=== PATIENT | male | born 1940 | race Caucasian/White ===

== ENCOUNTER 2016-07-17 09:54 | Emergency (ER) | payer MEDICARE, OTHER ==
[~2016-07-17] VITALS: Ht 188 cm; Wt 88.6 kg
[~2016-07-17 09:54] MED LIST: ALBU0.63 IH; ASPI81TA3 PO; COMBIVENTA INH; FORM12CA IH; INSU100I13 SUBQ; LISI10TA2 PO; METF10002 PO; METO25TA6 PO; MORP-32 PO; OMEP-113 PO; PRAV80TA2 PO; SERT100T9 PO; TRAZ-118 PO; amoxicillin PO
[2016-07-17 09:59] VITALS: BP 162/88; PULSE 66; RESP 18; O2SAT 98
--- NOTE | 2016-07-17 10:08 | ED.REPORT ---
HPI-Neurologic Deficit Date of Service July 17, 2016 ED Provider: Amadou Russell MD The patient is a 75 year old male w/ a hx of DM on insulin, stroke, IL, and HTN who presents to the ED due increasing numbness and dysfunction in right leg increasing in severity over the past few months. The pt reports he's been tripping and has noticed that his right leg is "dragging" behind him. Associated symptoms include difficulty urinating, incontinence, and slurred speech. He denies numbness, fever, chills, hematochezia, hematuria, dysuria, LOC , dizziness, and confusion. Pt recently had a cold but feels better now. 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 The patient was sent here directly from the [facility]. Nursing Notes Stated Complaint: BACK/RIGHT LEG PAIN Chief Complaint: Back Pain or Injury Nursing Notes Reviewed: Yes Allergies: Coded Allergies: quinine (Verified Allergy, Severe, 11/11/13) Uncoded Allergies: SURG TAPE (Allergy, Mild, BLISTERS, 11/14/05) Scheduled ([amoxicillin]) 1 GM PO TID Albuterol/Ipratropium (Combivent Inhaler) 14.7 Gm Aero 14.7 GM INH QID Aspirin Chew (Aspirin Chew) 81 Mg Tab.chew 81 MG PO DAILY Formoterol Fumarate (Foradil) 12 Mcg Cap.w.dev 12 MCG IH BID Insulin Glargine (Lantus U100 Solostar Insulin Pen) 100 Unit/1 Ml Insuln.pen 10 UNIT SUBQ HS Lisinopril (Lisinopril) 10 Mg Tablet 10 MG PO DAILY Metformin (Metformin) 1,000 Mg Tablet 1,000 MG PO BIDWM Metoprolol Tartrate (Metoprolol Tartrate) 25 Mg Tablet 12.5 MG PO BID Morphine Sulfate ER (Morphine Sulfate ER) 15 Mg Tablet.er 15 MG PO BID Omeprazole Magnesium (Omeprazole) 20 Mg Capsule.dr 40 MG PO BID Pravastatin (Pravastatin) 80 Mg Tablet 80 MG PO HS Sertraline HCl (Sertraline) 100 Mg Tablet 200 MG PO DAILY Trazodone (Trazodone) 100 Mg Tablet 200 MG PO HS Scheduled PRN Albuterol Neb Soln (Albuterol Neb Soln) 0.63 Mg/3 Ml Vial.neb 90 MCG IH BID PRN PRN For Shortness of Breath General Time Seen by Provider: 10:12 Chief Complaint Other (numbness in right leg) Hx Obtained From: Patient Arrived By: Walk-in Sudden in Onset?: Yes Onset Occurred: More than a week ago... (3 months) Symptom Duration: Since onset Location: : Leg right Quality: Itching Severity: Current: Mild Recent Healthcare: Recent doctor visit Similar Sx Previous: Yes Risk Factors NIH Stroke Scale Level of Consciousness: Alert and responsive (0) Ask Month & Age: Both questions right (0) Open/Close Eyes/Hand Ruby Engineer: Performs both tasks (0) Horizontal EO Movements: None (0) Visual Elliott: No visual loss (0) Facial Palsy: Normal symmetry (0) Right Arm Motor Drift (10s): No drift 10 sec (0) Left Arm Motor Drift (10s): No drift 10 sec (0) Right Leg Motor Drift (5s): No drift 5 sec (0) Left Leg Motor Drift (5s): No drift 5 sec (0) Limb Ataxia FNF/Heel-Mosher: Ataxia in 2 limbs (2) Sensation (Arms/Legs/Face): Pinprick less sharp (1) (right upper extremity) Language Aphasia: No aphasia, normal (0) Dysarthria: No dysarthria, normal (0) Extinction/Inattention: No exctinct/inattent (0) NIHSS Score: 2 Time NIHSS Performed: 10:18 Date NIHSS Performed: July 17, 2016 Past Medical History Past Medical History DM on insulin HTN stroke IL Past Surgical History right partial lung resection Smoking History Unknown if Ever Smoker Social History Alcohol Use: Denies alcohol use Other Social History: Local resident Ambulatory Status Independent Review of Systems Respiratory: Denies: Shortness of breath GI: Denies: Diarrhea, Hematemesis, Hematochezia, Nausea, Vomiting Neurologic: Reports: Numbness (right leg, bilateral feet), Slurred speech, Weakness, Denies: Change LOC, Dizziness Complete sys rev & neg: except as marked. Male: Reports Incontinence, Reports Urination decreased, Denies Dysuria Physical Exam Initial Vital Signs Vital Signs (First) Date Time Temp Pulse Resp B/P Pulse Ox O2 Delivery O2 Flow Rate FiO2 07/17/16 09:59 36.4 66 18 162/88 98 Room Air Initial VS: Reviewed General/Constitutional: Awake, Alert, No acute distress, Cooperative Head / Eyes: Normocephalic Respiratory / Chest: No respiratory distress, No wheezing, No retractions Cardiovascular: Heart rate NL, Regular rhythm Speech: Positive: Slurred Neck: Atraumatic, Supple Back: Atraumatic, Inspection NL Upper Extremity / MS: Atraumatic, Inspection NL, Full range of motion Lower Extremity / Pelvis / MS: No deformity Right Leg / Calf: Positive: Neuro deficit present weak to dorsal flexion on the right leg Interpretation & Diagnostics Interpretation & Diagnostics: BRAIN MRI IMPRESSION: 1. No acute intracranial abnormality. 2. No recent infarct. 3. Volume loss and small vessel ischemic disease. Dictated by: Darren Coleman M.D. on 07/17/2016 at 11:31 Approved by: Darren Coleman M.D. on 07/17/2016 at 11:33 Lab Results Interpretation Result Diagram: 07/17/16 1050 07/17/16 1050 Test 07/17/16 10:50 White Blood Count 7.1th/mm3 (3.8-10.1) Red Blood Count 4.75mil/mm3 (4.40-5.80) Hemoglobin 13.0g/dL (13.8-17.2) Hematocrit 40.3% (41.0-50.0) Mean Corpuscular Volume 84.8fL (81-100) Mean Corpuscular Hemoglobin 27.4pg (27.0-35.0) Mean Corpuscular Hemoglobin Concent 32.3% (32.0-37.0) Red Cell Distribution Width 14.3% (12.3-15.4) Platelet Count 227bil/L (150-400) Neutrophils (%) (Auto) 63.2% (40-74) Lymphocytes (%) (Auto) 24.9% (14-46) Monocytes (%) (Auto) 9.1% (4-12) Eosinophils (%) (Auto) 2.1% (0-5) Basophils (%) (Auto) 0.6% (0-3) Sodium Level 139mEq/L (134-144) Potassium Level 4.4mEq/L (3.5-5.2) Chloride Level 100mEq/L (97-108) Carbon Dioxide Level 25mmol/L (18-29) Blood Urea Nitrogen 16mg/dL (8-27) Creatinine 1.15mg/dL (0.76-1.27) Estimat Glomerular Filtration Rate 66mL/min (>59) Glucose Level 151mg/dL (60-99) Calcium Level 9.5mg/dL (8.5-10.1) Total Bilirubin 0.4mg/dL (0.0-1.2) Aspartate Amino Transf (AST/SGOT) 57U/L (0-50) Alanine Aminotransferase (ALT/SGPT) 44U/L (0-44) Alkaline Phosphatase 60U/L (25-160) Total Protein 7.9g/dL (6.4-8.4) Albumin 4.2g/dL (3.4-5.0) ECG Interpretation ECG Interpretation: prolonged AR interval Time: 10:43 Interpreted by: ED physician Normal ECG Interpretation: Normal sinus rhythm (rate 66) Re-Eval/Medical Decision Med Decision/Clinical Course The serum and symptoms have been present for a couple of months. To me it seems most critical to exclude a central nervous system problem which I believe we have effectively excluded with MRI of the brain. He continues to suffer from dysfunction of his right lower extremity which I believe will likely require further investigation. I encouraged him to follow up at the [facility] in the coming days for more definitive investigation of this problem specifically. Re-Evaluation/Progress : Time of Eval: 12:04 Patient Status: Pain improved Re-Evaluation/Progress Note: Pt rechecked. Informed pt of negative MRI and plan for discharge. Pt understands and agrees with plan. F/U and RTER warnings given. All questions addressed. Counseled Regarding: Diagnosis, Lab results, Need for follow-up, When/why to return to ED Discharge & Departure Impression: Primary Impression: Weakness of right lower extremity Disposition: Home Discharge Condition All VS Reviewed: Yes Condition: Stable Patient Instructions: Lumbar Radiculopathy (ED) Additional Instructions: Thank you for entrusting us with your care today. Your MRI does not show any acute findings, you did not have a new or recent stroke. Speak to your doctors at the [place] regarding your leg for further evaluation. I believe this should be evaluated in the next one or 2 weeks. It is conceivable that there is some sort of a nerve impingement in the lower back region. Return to the Emergency Department for any new or worsening symptoms including dizziness, loss of consciousness, numbness, and weakness. I hope you feel better soon, enjoy the sunshine! Do not drive any sooner than 3 PM today because of the medications we have given. Referrals: OTHER,PHYSICIAN (PCP) Scribe Attestation Portion of this note were transcribed by Gi Ogden. I, Dr. Russell, personally performed the history, physical exam, and medical decision-making: I reviewed and confirmed the accuracy for the information in the transcribed note. Signed by: jose j Alfaro, 07/17/16 1200 copies to: [facility] Amadou Russell MD July 17, 2016 10:08 Gi Ogden July 17, 2016 10:15
[2016-07-17 11:01] LABS: BASOPHILS % (AUTO) 0.6 % (0-3); EOSINOPHILS % (AUTO) 2.1 % (0-5); MONOCYTES % (AUTO) 9.1 % (4-12); Mean Corpuscular Hemoglobin 27.4 pg (27.0-35.0); Mean Corpuscular Volume 84.8 fL (81-100); NEUTROPHILS % (AUTO) 63.2 % (40-74); Platelet Count 227 bil/L (150-400)
--- NOTE | 2016-07-17 11:34 | DRSVH ---
PROCEDURE: MRI BRAIN WITHOUT CONTRAST ([id number]) INDICATIONS: right side deficits, sub acute TECHNIQUE: Non-contrast axial T1 spin echo, axial T2 fast spin echo, sagittal and axial FLAIR, coronal T2 fast s pin echo, axial gradient echo, axial diffusion and ADC through the brain. COMPARISON: [facility], MR, STROKE PROTOCAL (PNL), 07/29/2007, 11:51. FINDINGS: Image quality: Partially degraded by motion artifact. CSF spaces: Ventricles appear symmetric in size and shape. Basal cisterns are patent. No extra-axi al fluid collections. Brain: No intracranial bleeds or mass effects. There is cerebral volume loss for age. There are pe riventricular and deep white matter chronic small vessel ischemic changes. Brainstem appears normal. Diffusion-weighted images show no acute ischemic insults. No chronic ischemic insults. Normal int ravascular flow voids are present. Skull and face: Calvarial bone marrow is normal in signal. Orbits are normal. Sinuses: Sinuses and mastoids are clear. IMPRESSION: 1. No acute intracranial abnormality. 2. No recent infarct. 3. Volume loss and small vessel ischemic disease. Dictated by: Darren Coleman M.D. on 07/17/2016 at 11:31 Approved by: Darren Coleman M.D. on 07/17/2016 at 11:33
[2016-07-17 11:59] VITALS: BP 130/74; PULSE 65; RESP 16; O2SAT 94
[2016-07-17 14:38] VITALS: BP 134/81; PULSE 76; RESP 18; O2SAT 96
== END 2016-07-17 14:39 | disposition home or self-care (01) ==
LOC: SED 09:54
DX: R53.1 Weakness (principal); E11.9 Type 2 diabetes mellitus without complications; I10 Essential (primary) hypertension; I25.2 Old myocardial infarction; Z86.73 Personal history of transient ischemic attack (TIA), and cerebral infarction without residual deficits; Z79.4 Long term (current) use of insulin; Z90.2 Acquired absence of lung [part of]; Z79.82 Long term (current) use of aspirin; Z79.84 Long term (current) use of oral hypoglycemic drugs; Z88.8 Allergy status to other drugs, medicaments and biological substances
CPT/HCPCS: 36415; 70551; 80053; 85025; 93005; 96374; 99285; J2060